=== PATIENT | female | born 1955 | race Caucasian/White ===

== ENCOUNTER → 2021-08-09 16:22 | Outpatient (CLI) | payer BC, SELFPAY ==
--- NOTE | 2021-08-09 16:27 | XR_ITS ---
PROCEDURE INFORMATION: Exam: XR Abdomen Exam date and time: 08/09/2021 4:27 PM Age: 65 years old Clinical indication: Condition or disease; Kidney or ureter condition; Calculus (stone) in kidney; Additional info: Kidney stone TECHNIQUE: Imaging protocol: XR of the abdomen. Views: Frontal supine view of the abdomen. 1 View. COMPARISON: No relevant prior studies available. FINDINGS: Lungs: Visualized lung bases are normal. Gastrointestinal tract: No bowel dilation. Intraperitoneal space: No free intraperitoneal air. Organs: No organomegaly. No radiopaque system calculi. Bones/joints: No acute fracture. 1.6 cm sclerotic focus in the sacrum, right of midline. IMPRESSION: 1.6 cm sclerotic focus in the sacrum. Possible bone island. Cannot exclude sclerotic metastasis if the patient has a primary neoplasm. Consider further imaging with bone scan.
== END ==
PROVIDERS: PCP Internal Medicine; Visit Provider Urology
DX: Z01.812 Encounter for preprocedural laboratory examination (principal); Z11.52 Encounter for screening for COVID-19; N20.0 Calculus of kidney
CPT/HCPCS: 74018; C9803; U0003; U0005

== ENCOUNTER 2021-08-10 10:13 | Day surgery (SDC) | payer BC, SELFPAY ==
[2021-08-10] VITALS (10 sets, daily range): BP systolic 129–153; BP diastolic 61–96; PULSE 82–110; RESP 12–22; TEMP 36.5–43; O2SAT 91–95; BMI 45.4
--- NOTE | 2021-08-10 | XR_ITS ---
FINAL REPORT CLINICAL HISTORY: LEFT STENT PLACEMENT fluoro time 2.08 FINDINGS: Fluoroscopy was obtained. Two spot images were received with 2.08 minutes of fluoroscopy time. Reviewed, Interpreted and Dictated by Alok Disla MD Transcribed by Bianca Apple Authenticated by Alok Disla MD on 08/10/2021 04:35:51 PM [facility]
--- NOTE | 2021-08-10 13:00 | P.PN_ITS ---
[facility] Anesthesia Checklist - Structural Data Admitted From: Home Planned Operative Procedure/s: ureteroscopy Consent for Planned Operative Procedure(s) Verified: Yes - Additional verifications Anesthesia Reactions: Yes (drowsiness) Hx Blood Transfusions: No Blood Transfusion Reaction: No - Airway Assessment C-Spine Mobility Assessed: Yes TMJ Mobility Assessed: Yes Dentition: Good Dentition - Neurological Assessment Level of Consciousness: Awake, Alert, Appropriate - Anesthesia Plan Anesthesia Risk discussed: Yes Anesthesia Plan: Verified ASA Class: III Anesthesia Type: General [facility] History I have reviewed the patient's past medical history: Yes Medical History: Reports:: Cancer (cervical), Gastroesophageal Reflux Disease(GERD), Kidney Stones Denies:: Diabetes Mellitus Type 1, Diabetes Mellitus Type 2, MRSA, Seizures *Have you ever received a pneumonia vaccine?: Yes *Have you received a flu vaccine this season?: Yes Other Medical History: Reports: Arthritis. Denies: Blood Transfusion Reaction Anesthesia experience/problems:: none Laterality Cases: Right: Arthroscopy Knee, Bilateral: Cataract, Tonsillectomy Other Surgeries: Yes: Cholecystectomy, Colonoscopy, Hysterectomy-Total Amputation: No Fractures: No - *Social History Last grade of school completed: Advanced degree Smoking Status: Never smoker Alcohol Intake: never Substance Use Type: denies use *Occupational Status:: retired Housing: house Household Members: spouse *Travel in the last 8 weeks: None Family Hx:: No significant family history
--- NOTE | 2021-08-10 13:01 | P.PN_ITS ---
[facility] Anesthesia Record Part I Intake, IV Amount: 600 Estimated blood loss (mL): 0 Urine output (mL): 0 Blood Pressure: 153/81 SaO2: 94 Pulse Rate: 102 Respiratory Rate: 12 Temperature: 98.9 F Patient is:: Awake, Stable Stable to PACU at:: 13:00
--- NOTE | 2021-08-10 13:34 | P.OP_ITS ---
Date of procedure: 08/10/21 Pre-op Diagnosis:: Left ureteral stone Post-op Diagnosis:: Left ureteral stone Procedure performed:: Cystoscopy with left ureteral stone manipulation and left stent placement Surgeon:: Jair Lomeli MD RESEARCH STUDY ASSISTANT:: Amilcar Joe Anesthesia: LMA Estimated blood loss (mL): 0 Clinical Note:: 65-year-old white female with recent left renal colic noted to have a 5 mm left proximal ureteral stone and a 5 mm left renal stone CT. She has continued to have left renal colic and presents for urologic management. Preoperative KUB shows the stone is still in the proximal ureter. Operative findings:: Hazy calcification in the region of the proximal ureter was manipulated proximally in the left stent placed. Operative note:: Patient taken to the operating room after informed consent was obtained. General anesthesia was performed. Sequential compression devices and preoperative antibiotics administered. She was then placed into the dorsal lithotomy position and prepped and draped in the standard surgical fashion. The 22 Macedonian cystoscope then passed into the urethra and into the bladder. The bladder was examined in a systematic fashion and was within normal limits. The ureteral orifices in their normal anatomic position. A guidewire passed into the left ureteral orifice and under fluoroscopy passed proximally. A hazy calcification was noted in the left proximal ureter but the wire slid by it without difficulty. A 5 Macedonian ureteral catheter then passed over the guidewire and the hazy calcification in the proximal ureter was manipulated proximally into the kidney. The ureteral catheter then removed and a 4.8 x 24 Macedonian stent passed over the guidewire and the guidewire removed. A good curl was noted proximally and distally. The string was removed. The bladder emptied the scope removed. Patient tolerated procedure well without complications. Condition: stable Disposition: same day Specimens:: None Complications:: None
--- NOTE | 2021-08-10 14:41 | SUR.PHASEII ---
gave strainer and cup for fragments to bring in at FU
--- NOTE | 2021-08-11 18:41 | HMH.ANESII ---
[facility] Anesthesia Record Part II Discharge Time: 13:30 Destination: Home PACU nurse assessment reviewed?: Yes Patient Condition:: Good Anesthesia Complications:: None none Swallowing reflex intact?: Yes Cyanosis?: No Blood Pressure: 129/74 Pulse Rate: 90 Temperature: 98.9 F Mental Status: Alert & Oriented Pain level:: 0 Nausea and/or vomitting:: None Intake, IV Amount: 0
[2021-08-11 18:42] VITALS: BP 129/74; PULSE 90; TEMP 37.2
== END 2021-08-10 14:30 | disposition home or self-care (01) ==
LOC: OR 10:15
PROVIDERS: PCP Internal Medicine; Visit Provider Urology
PROC: (CPT 52352; principal; 2021-08-10 11:45)
DX: N20.1 Calculus of ureter (principal); K21.9 Gastro-esophageal reflux disease without esophagitis; M19.90 Unspecified osteoarthritis, unspecified site; Z85.41 Personal history of malignant neoplasm of cervix uteri; Z88.0 Allergy status to penicillin; Z88.8 Allergy status to other drugs, medicaments and biological substances; Z79.899 Other long term (current) drug therapy
CPT/HCPCS: 52330; 74018; 76000; 96374; C2617; J2405

== ENCOUNTER → 2021-08-20 14:32 | Outpatient (CLI) | payer BC, SELFPAY ==
--- NOTE | 2021-08-20 14:37 | XR_ITS ---
FINAL REPORT CLINICAL HISTORY: lt kidney stone COMPARISON: August 09, 2021 FINDINGS: There is a nonobstructive bowel gas pattern. There are no abnormally dilated loops of small bowel. There is a left ureteral stent. There is a questionable left renal stone measuring 4 mm. There are multiple pelvic calcifications most of which likely represent phleboliths. There is a possible distal left ureteral stone measuring 4 mm. IMPRESSION: Left ureteral stent in place. Questionable left renal stone. Possible distal left ureteral stone. Reviewed, Interpreted and Dictated by Reddy Benedict III, MD Transcribed by Tru Lucero Authenticated by eRddy Benedict III, MD on 08/20/2021 04:24:04 PM [facility]
== END ==
PROVIDERS: PCP Internal Medicine; Visit Provider Urology
DX: N20.0 Calculus of kidney (principal)
CPT/HCPCS: 74018

== ENCOUNTER → 2021-08-25 12:53 | Outpatient (CLI) | payer BC, SELFPAY ==
[2021-08-25 13:02] LABS: MANUAL DIFFERENTIAL MANUAL DIFFERENTIAL (MANUAL DIFF)
[2021-08-25 13:24] LABS: Basophils # 0.1 K/mm3 (0-0.2); Basophils % 1.8 % (0.1-2.0); Eosinophils # 0.2 K/mm3 (0.0-0.4); Eosinophils % 3.6 % (0.1-12.0); Hematocrit 42.9 % (37.0-47.0); Lymphocytes # 1.7 K/mm3 (0.7-4.5); Lymphocytes % 25.1 % (10-50); Mean Corpuscular HGB Conc 32.7 g/dL (31.8-35.4); Mean Corpuscular Hemoglobin 32.8 pg (27.0-31.2); Mean Corpuscular Volume 100.3 fl (81-99); Mean Platelet Volume 8.5 fl (7.4-10.4); Monocytes # 0.4 K/mm3 (0.1-1.0); Monocytes % 5.8 % (1.7-9.3); Neutrophils # 4.3 K/mm3 (1.8-7.8); Neutrophils % 63.7 % (37.0-80.0); Platelet Count 367 K/mm3 (142-424); Red Blood Count 4.28 M/mm3 (4.20-5.40); Red Cell Distribution Width 13.5 % (11.5-17.5); White Blood Count 6.7 K/mm3 (4.8-10.8)
[2021-08-25 14:20] LABS: Eosinophils % 3 % (0-3); Lymphocytes % 31 % (10-50); Macrocytosis 1+; Monocytes % 3 % (2-9); Neutrophils % 63 % (42-76); Platelet Estimate Normal; Total Cells Counted 100
[2021-08-25 15:06] LABS: Blood Urea Nitrogen 13 mg/dl (7-17); Calcium 8.8 mg/dl (8.4-10.2); Carbon Dioxide 27 mmol/L (22.0-30.0); Chloride 107 mmol/L (98-107); Estimated Glomerular Filt Rate 72 ml/min (>60); GFR (African American) 88 ML/MIN (>60); Glucose 89 mg/dl (74-100); Sodium 141 mmol/L (136-145)
== END ==
PROVIDERS: Visit Provider Urology
DX: Z01.812 Encounter for preprocedural laboratory examination (principal); Z11.52 Encounter for screening for COVID-19; N20.0 Calculus of kidney; N20.1 Calculus of ureter
CPT/HCPCS: 36415; 80048; 85007; 85014; 85018; 85048; 85049; C9803; U0003; U0005

== ENCOUNTER 2021-08-27 07:15 | Day surgery (SDC) | payer BC, SELFPAY ==
[2021-08-24 15:08] VITALS: BMI 46.7
[2021-08-27] VITALS (11 sets, daily range): BP systolic 126–154; BP diastolic 63–87; PULSE 60–76; RESP 12–18; TEMP 36.4–43; O2SAT 93–98
--- NOTE | 2021-08-27 07:21 | XR_ITS ---
FINAL REPORT CLINICAL HISTORY: kidney stones left side COMPARISON: August 20, 2021 FINDINGS: SINGLE VIEW ABDOMEN A single view of the abdomen was obtained. There is a nonobstructive bowel gas pattern. There are no abnormally dilated loops of small bowel. There is a left ureteral stent present. There is a stone in the left kidney measuring 5 mm. There are probable stones adjacent to the to the stent in the left lower pelvis. There are multiple phleboliths in the pelvis. There is a sclerotic focus presumably in the sacrum, stable. IMPRESSION: Left renal stone with probable stones adjacent to the distal left ureteral stent. Reviewed, Interpreted and Dictated by Reddy Benedict III, MD Transcribed by Juana Bruner Authenticated by Reddy Benedict III, MD on 08/27/2021 09:57:47 AM [facility]
--- NOTE | 2021-08-27 11:13 | P.PN_ITS ---
[facility] Anesthesia Checklist - Structural Data Admitted From: Home Planned Operative Procedure/s: eswl w ureteroscopy Consent for Planned Operative Procedure(s) Verified: Yes - Additional verifications Anesthesia Reactions: Yes (drowsiness) Hx Blood Transfusions: No Blood Transfusion Reaction: No - Airway Assessment C-Spine Mobility Assessed: Yes TMJ Mobility Assessed: Yes Dentition: Good Dentition - Neurological Assessment Level of Consciousness: Awake, Alert, Appropriate - Anesthesia Plan Anesthesia Risk discussed: Yes Anesthesia Plan: Patient unable to respond/answer ASA Class: III Anesthesia Type: General [facility] History I have reviewed the patient's past medical history: Yes Medical History: Reports:: Cancer (cervical ca), Gastroesophageal Reflux Disease(GERD), Kidney Stones Denies:: Diabetes Mellitus Type 1, Diabetes Mellitus Type 2, Internal Pacemaker, MRSA, Seizures *Have you ever received a pneumonia vaccine?: Yes *Have you received a flu vaccine this season?: Yes Other Medical History: Reports: Arthritis. Denies: Blood Transfusion Reaction Anesthesia experience/problems:: none Laterality Cases: Right: Arthroscopy Knee, Bilateral: Cataract, Tonsillectomy Other Surgeries: Yes: No Previous Surgery, Cholecystectomy, Colonoscopy, Hysterectomy-Total, Ureter Stent. No: Pacemaker Amputation: No Fractures: No - *Social History Last grade of school completed: Advanced degree Smoking Status: Never smoker Alcohol Intake: never Substance Use Type: denies use *Occupational Status:: retired Housing: house Household Members: spouse *Travel in the last 8 weeks: None Family Hx:: No significant family history
--- NOTE | 2021-08-27 11:14 | P.PN_ITS ---
[facility] Anesthesia Record Part I Intake, IV Amount: 900 Estimated blood loss (mL): 0 Urine output (mL): 0 Blood Pressure: 142/78 SaO2: 95 Pulse Rate: 74 Respiratory Rate: 12 Temperature: 98.4 F Patient is:: Awake, Stable Stable to PACU at:: 11:10
--- NOTE | 2021-08-27 11:14 | HMH.OPNOTE ---
Date of procedure: 08/27/21 Pre-op Diagnosis:: Left distal ureteral stone, left kidney stone Post-op Diagnosis:: Same Procedure performed:: Left ureteroscopy with stone extraction and left stent removal, left ESWL Surgeon:: Jair Lomeli MD OIL SPECULATOR:: Amilcar Joe Anesthesia: LMA Estimated blood loss (mL): 0 Clinical Note:: 65-year-old white female with recent left renal colic status post left stent placement with improvement in the colic. She continues to have the left distal ureteral stone and left kidney stone and presents for urologic management. Operative findings:: 4 mm stone noted in the left distal ureter removed with basket and a 7 mm stone in the left middle pole calyx was treated with left ESWL. Operative note:: Patient taken to the operating room after informed consent was obtained. She was placed on the operating room table in the supine position and general anesthesia administered. Preoperative antibiotics and sequential compression devices placed. She was then placed into the dorsal lithotomy position and prepped and draped in the standard surgical fashion. A 22 Panamanian cystoscope then passed into the urethra and into the bladder. The stent was noted from the left ureteral orifice and was grasped and brought out to the urethral meatus. A 0.035 sensor guidewire then passed through the lumen of the ureteral stent and under fluoroscopy passed into the left renal pelvis. The ureteral stent was removed and the semirigid ureteroscope was passed into the urethra and into the bladder and into the left ureter and up to the level of a couple of small stones. A 1.9 Panamanian stone basket was passed through the scope and the 4 mm stone was grasped and brought out without difficulty. A smaller 1 mm stone was grasped and removed as well. No other stones were noted in the ureter. The scope removed and the guidewire removed. The bladder was drained and patient then placed in the supine position and the lithotripter focused onto the 7 mm left kidney stone. 3000 shockwaves delivered to the stone with apparent good fragmentation. Patient tolerated the procedure well there are no complications. Condition: stable Disposition: PACU Specimens:: Ureteral stone Complications:: None
--- NOTE | 2021-08-27 11:41 | SUR.PHASEI ---
1139- detailed report called to sarah soto in post op. 1141- pt left in stable condition with sarah soto and sarah haney at this time.
--- NOTE | 2021-08-27 14:12 | P.PN_ITS ---
[facility] Anesthesia Record Part II Discharge Time: 11:40 Destination: Surgical Day Care (OP Surgery) PACU nurse assessment reviewed?: Yes Patient Condition:: Good Anesthesia Complications:: None Swallowing reflex intact?: Yes Cyanosis?: No Blood Pressure: 126/63 Pulse Rate: 70 Temperature: 98.5 F Mental Status: Alert & Oriented Pain level:: 0 Nausea and/or vomitting:: None Intake, IV Amount: 0
[2021-09-23 23:06] LABS: Ca oxalate dihydrate 50%
== END 2021-08-27 12:11 | disposition home or self-care (01) ==
PROVIDERS: PCP Internal Medicine; Visit Provider Urology
PROC: (CPT 50590; principal; 2021-08-27 08:30)
DX: N20.0 Calculus of kidney (principal); N20.1 Calculus of ureter; K21.9 Gastro-esophageal reflux disease without esophagitis; Z85.41 Personal history of malignant neoplasm of cervix uteri; M19.90 Unspecified osteoarthritis, unspecified site; Z79.899 Other long term (current) drug therapy; Z88.0 Allergy status to penicillin; Z88.6 Allergy status to analgesic agent; Z88.1 Allergy status to other antibiotic agents; Z91.040 Latex allergy status
CPT/HCPCS: 50590; 50945; 74018; 82370; 96374; J2405

== ENCOUNTER → 2021-09-24 13:42 | Outpatient (CLI) | payer BC, SELFPAY ==
--- NOTE | 2021-09-24 13:45 | XR_ITS ---
FINAL REPORT CLINICAL HISTORY: kidney stone FINDINGS: SINGLE VIEW ABDOMEN A single view of the abdomen was obtained. There is a nonobstructive bowel gas pattern. There are no abnormally dilated loops of small bowel. There is a 5 mm stone in the mid left kidney. There is a 16 mm density overlying the mid sacrum of uncertain etiology. Multiple pelvic calcifications are identified, most likely represent phlebolith but a ureteral stone is not entirely excluded. IMPRESSION: Left renal stone. Density overlies the mid sacrum of uncertain etiology. If indicated, pelvic CT may be helpful. Calcifications most likely represent phleboliths but ureteral stone is not entirely excluded. If indicated, stone protocol CT may be helpful. Reviewed, Interpreted and Dictated by Reddy Benedict III, MD Transcribed by Bianca Apple Authenticated by Reddy Benedict III, MD on 09/24/2021 02:54:53 PM [facility]
== END ==
PROVIDERS: PCP Internal Medicine; Visit Provider Urology
DX: N20.0 Calculus of kidney (principal)
CPT/HCPCS: 74018

== ENCOUNTER → 2021-09-30 09:30 | Outpatient (CLI) | payer BC, SELFPAY ==
--- NOTE | 2021-09-30 09:33 | XR_ITS ---
FINAL REPORT CLINICAL HISTORY: KIDNEY STONE, PAIN ON RIGHT, HX OF SX FOR LEFT SIDED KIDNEY STONES COMPARISON: 09/24/2021 FINDINGS: SINGLE VIEW ABDOMEN A single view of the abdomen was obtained. There is a nonobstructive bowel gas pattern. There are no abnormally dilated loops of small bowel. No abnormal calcifications are identified. IMPRESSION: No abnormal calcifications identified. Reviewed, Interpreted and Dictated by Alok Disla MD Transcribed by Tru Lucero Authenticated by Alok Disla MD on 09/30/2021 10:55:45 AM [facility]
== END ==
PROVIDERS: PCP Internal Medicine; Visit Provider Urology
DX: N20.0 Calculus of kidney (principal)
CPT/HCPCS: 74018